=== PATIENT | female | born 1970 | race Caucasian/White ===

== ENCOUNTER 2022-08-26 09:23 | Outpatient (CLI) | payer BC | END 2022-08-26 09:24 | disposition home or self-care (01) | LOC: SCSMRI 09:23 | PROVIDERS: ATTEND Family Medicine | DX: M47.22 Other spondylosis with radiculopathy, cervical region (principal); M50.10 Cervical disc disorder with radiculopathy, unspecified cervical region; M79.18 Myalgia, other site | CPT/HCPCS: 72040; 72141 ==